=== PATIENT | male | born 2000 | race Caucasian/White ===

== ENCOUNTER 2024-04-24 05:58 | Emergency (ER) | payer OTHER, SELFPAY ==
[2024-04-24 06:03] VITALS: BP 154/92
[2024-04-24 06:32] VITALS: BMI 34.2
--- NOTE | 2024-04-24 06:55 | ED.GENMED ---
History of Present Illness
General
Chief Complaint: Abdominal Pain
Source: patient and spouse
Exam Limitations: none
Time Seen by Provider: 04/24/24 06:32
Nursing documentation reviewed up to this point in time: agreed with
History of Present Illness
History of Present Illness:
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
he could have been lifting some heavy weights but is uncertain, no history of kidney stones, no fevers no vomiting though he did feel nausea
Past History
Past History
ED Past Medical History: None
ED Past Surgical History: None
Social History
Tobacco: Non-smoker
Alcohol: None
Drug: None
Personal:
Living: with family
Employment: Employed
Review of Systems
Review of Systems
All Other Systems: Not applicable
Constitutional: Denies fever or fatigue
ABD/GI: Reports nausea; Denies abdominal pain or vomiting
: Reports flank pain; Denies dysuria, incontinence or bleeding
Skin: Reports no symptoms
Neurological: Reports no symptoms
Endocrine: Reports no symptoms
Phy Exam
Physical Exam
Physical Exam:
Physical Exam
General: no apparent distress, not acutely ill
Neck: No jaundice
Heart: s1/s2 regular rate and rhythm, no murmur. equal radial pulses.
Lungs: no acute respiratory distress. clear bilaterally
Abdomen: Mild right flank tenderness no anterior tenderness
Neuro: alert and oriented. no focal neurological deficits
Skin: no rash
Psychiatric: well kept. interactive and cooperative
Extremities: no edema.
Course
Orders/Labs/Results
Orders:
Orders
04/24/24 06:42
CT Abd/pel Without Iv Or Oral Urgent
Comment:
Reason For Exam: Emilee gastelum
IV Insert/Care/Rem.- Treatment PRN
0.9% Sodium Chloride 1000 ml [Nss] 1,000 ml IV BOLUS
Ketorolac [Toradol] 30 mg IV NOW STA
04/24/24 06:48
CMP [Comprehensive Metabolic Panel] Urgent
Complete Blood Count/With Diff Urgent
Urinalysis Reflex To Culture Urgent
Date Specimen was Collected: 04/24/24
Time Specimen was Collected: 06:37
Urine Microscopic Reflex Cult Urgent
Abnormal Lab Results
04/24/24
06:48
Carbon Dioxide 21 L mmol/L
(22-30)
BUN 25 H mg/dl
(9-20)
ALT 74 H U/L
(0-50)
Ur Occult Blood Reflex 2+ A
(Negative)
04/24/24 06:48
04/24/24 06:48
Vital Signs
Initial and Last Documented VS:
Initial Vital Signs
Temp Pulse Resp BP Pulse Ox
97.4 F 78 24 154/92 98
04/24/24 06:03 04/24/24 06:03 04/24/24 06:03 04/24/24 06:03 04/24/24 06:03
Last Documented Vital Signs
Temp Pulse Resp BP Pulse Ox
97.4 F 74 18 118/76 98
04/24/24 06:03 04/24/24 07:06 04/24/24 07:06 04/24/24 07:06 04/24/24 07:06
MDM/Problems Addressed
Differential Diagnosis Includes:
Muscle strain, renal colic, UTI, doubt AAA at this age
MDM/Problems Addressed:
Flank pain
*Radiology
Radiology exam reviewed: radiology read reviewed
*Pulse Oximetry
Patient hypoxic: no
*Critical Care Note
Total Time (30-74mins, 75-104mins- exclusive of procedures): Not Applicable
Update Note
Update Note:
Update labs are noted urine noted CT noted perhaps he passed a stone
ED Attending Note
-
Portions of this chart may have been created with voice recognition software.� Occasional wrong word or��sound alike� substitutions may have occurred due to the inherent limitations of voice recognition software.
Discharge Plan
Departure
Patient Disposition: Home (Routine Discharge)
Date of Disposition: 04/24/24
Time of Disposition: 07:32
Patient with high blood pressure during this ER visit?: No
Condition: Good
Discharge Problem:
Acute flank pain
Instructions: Flank Pain (DC)
Prescriptions:
New
ibuprofen 600 mg tablet
600 mg PO Q8H PRN (Reason: Pain) Qty: 20 0RF
ondansetron 4 mg tablet,disintegrating
4 mg PO TIDPRN PRN (Reason: nausea/vomiting) Qty: 10 0RF
Referrals:
NONE,* [Family Provider] -
Interventions
Interventions:
*Risk Screen - Suicide Last Done: 04/24/24 06:03
*General Assessment Last Done: 04/24/24 06:33
*Neglect/Abuse Screening Last Done: 04/24/24 06:03
ED- Fall Risk Assessment Last Done: 04/24/24 06:33
*ED COVID-19 Vaccine History Last Done: 04/24/24 06:40
SM-Fhemmf-Wfstgvtihr Assessment Last Done: 04/24/24 06:33
Discharge Date and Time
Print Language: [id number]
[2024-04-24] MEDS: NSS 1000 IV (06:58)
[2024-04-24 07:01] LABS: % Basophils 0.4 % (0-2); % Eosinophils 4.9 % (0-6); % Immature Granulocytes 0.4 % (0-0.5); % Lymphocytes 28.4 % (20.5-51.1); % Monocytes 8.2 % (1.7-9.3); % Neutrophils 57.7 % (42.2-75.2); Absolute Eosinophils 0.2 10^3/uL (0-0.7); Absolute Lymphocytes 1.4 10^3/uL (1.2-3.4); Absolute Monocytes 0.4 10^3/uL (0.1-0.6); Absolute Neutrophils 2.8 10^3/uL (1.4-6.5); Hematocrit 43.7 % (39.0-52.0); Hemoglobin 15.8 g/dL (13.0-18.0); Mean Corp Hgb Conc. 36.2 g/dL (33.0-37.0); Mean Corpuscular Volume 85.7 fL (80.0-94.0); Mean Platelet Volume 9.8 fL (7.4-10.4); Nucleated Red Blood Cells % 0 % (-); Platelet Count 223 10^3/uL (130-400); Red Cell Dist. Width 11.5 % (11.5-14.5); White Blood Cell Count 4.9 10^3/uL (4.8-10.8)
[2024-04-24 07:06] VITALS: BP 118/76
[2024-04-24 07:12] LABS: ALT (SGPT) 74 U/L (0-50); AST (SGOT) 46 U/L (17-59); Albumin 4.8 g/dl (3.5-5.0); Alkaline Phosphatase 80 U/L (38-126); Blood Urea Nitrogen 25 mg/dl (9-20); Calcium 9.9 mg/dl (8.4-10.2); Carbon Dioxide 21 mmol/L (22-30); Chloride 104 mmol/L (98-107); Estimated Creatinine Clearance > 125 ml/min; Glucose 97 mg/dl (70-99); Potassium 4.6 mmol/L (3.5-5.1); Sodium 136 mmol/L (135-145); Total Bilirubin 0.7 mg/dl (0.2-1.3); Total Protein 6.8 g/dl (6.3-8.2); eGFR > 60.00
[2024-04-24 07:15] LABS: Urine Albumin Negative (Neg - Trace); Urine Bilirubin Negative (Negative); Urine Character Clear (Clear); Urine Color Yellow; Urine Glucose Negative (Negative); Urine Ketone Negative (Negative); Urine Leukocyte Negative (Negative); Urine Nitrite Negative (Negative); Urine Occult Blood 2+ (Negative); Urine Specific Gravity 1.025 (<1.030); Urine Urobilinogen Negative (Neg - 1+)
[2024-04-24 07:35] LABS: Urine Red Blood Cell 0-2 /HPF (0-2); Urine Squamous Cell 0-2 /LPF (Few); Urine White Cell 0-2 /HPF (0-5)
== END 2024-04-24 07:52 | disposition home or self-care (01) ==
LOC: EMR 05:58
PROVIDERS: Student in an Organized Health Care Education/Training Program; EMERGENCY PHYSICIAN Emergency Medicine
DX: R10.9 Unspecified abdominal pain (principal); R11.0 Nausea; R53.1 Weakness; Z86.16 Personal history of COVID-19; Z88.0 Allergy status to penicillin
CPT/HCPCS: 99284; 96360; 74176; 80053; 81003; 81015; 85025